=== PATIENT | female | born 1990 ===

== ENCOUNTER 2021-05-23 16:25 | Emergency (ER) | payer OTHER, BC, SELFPAY ==
--- NOTE | ~2021-05-23 | XR_ITS ---
EXAMINATION: XR lumbar spine 2-3V DATE: 05/23/2021 18:46 INDICATION: Low back pain TECHNIQUE: Anteroposterior and lateral views of the lumbar spine, and cone-down lateral view of the l umbosacral junction were obtained. COMPARISON: None. FINDINGS: There is no fracture, dislocation, or subluxation. The vertebral body heights, alignment, a nd intervertebral disc spaces are normal. The paravertebral soft tissues are unremarkable. IMPRESSION: 1. No acute osseous abnormality. Reviewed, dictated and finalized at location A.
[2021-05-23 17:47] VITALS: BP 144/91; PULSE 112; RESP 18; TEMP 37.1; O2SAT 100
[2021-05-23] MEDS: HYDROcodone/acetaminophen (*CRX) 5-325 MG TABLET 1 TAB PO (19:02)
[2021-05-23] MEDS: CYCLOBENZAPRINE HCL 10 MG TABLET PO (19:02)
[2021-05-23 19:35] VITALS: BP 135/92; PULSE 120; TEMP 36.8; O2SAT 100
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
== END 2021-05-23 19:40 | disposition home or self-care (01) ==
PROVIDERS: Emergency Provider Nurse Practitioner
DX: S39.012A Strain of muscle, fascia and tendon of lower back, initial encounter (principal); R03.0 Elevated blood-pressure reading, without diagnosis of hypertension; V49.40XA Driver injured in collision with unspecified motor vehicles in traffic accident, initial encounter
CPT/HCPCS: 72100; 81025; 99283; A9270